=== PATIENT | male | born 1945 ===

== ENCOUNTER 2016-09-21 10:22 | Emergency (ER) | payer MEDICARE ==
--- NOTE | 2016-09-21 11:39 | C.PDOC ---
History Of Present Illness 71 y/o male presents to the ED with complains of lower extremity pain and swelling x1 month. Pt is homeless, admits to being on feet a lot. Pt denies SOB , cough, fever, chest pain or any other complaints. Time Seen by Provider: 09/21/16 10:58 Chief Complaint (Nursing): Lower Extremity Problem/Injury History Per: Patient History/Exam Limitations: no limitations Onset/Duration Of Symptoms: Days Current Symptoms Are (Timing): Still Present Severity: Moderate Recent travel outside of the [place]: No Past Medical History Reviewed: Historical Data, Nursing Documentation, Vital Signs Vital Signs: Last Vital Signs Temp 98.4 F 09/21/16 10:25 Pulse 81 09/21/16 10:25 Resp 16 09/21/16 10:25 BP 135/72 09/21/16 10:25 Pulse Ox 96 09/21/16 12:15 - Medical History PMH: Depression, Gastrointestinal Ulcer, HTN (denies) - [facility] Procedures VACCINATION NEC (02/27/15) Family History: States: Unknown Family Hx - Social History Hx Tobacco Use: No Hx Alcohol Use: Yes Hx Substance Use: No - Immunization History Hx Tetanus Toxoid Vaccination: No Hx Influenza Vaccination: No Hx Pneumococcal Vaccination: No Review Of Systems Except As Marked, All Systems Reviewed And Found Negative. Constitutional: Negative for: Fever Cardiovascular: Negative for: Chest Pain Respiratory: Negative for: Cough, Shortness of Breath Musculoskeletal: Positive for: Other (bilateral lower leg swelling and pain) Physical Exam - Physical Exam Appears: Non-toxic, No Acute Distress Skin: Warm, Dry, No Rash Head: Atraumatic, Normacephalic Neck: Normal ROM, Supple Chest: Symmetrical Cardiovascular: Rhythm Regular, No Murmur Respiratory: Normal Breath Sounds, No Rales, No Rhonchi, No Wheezing Gastrointestinal/Abdominal: Soft, No Tenderness Extremity: Normal ROM, No Calf Tenderness, Capillary Refill (<2 seconds), No Deformity, Other (+1 pitting edema lower legs and feet; no erythema) Pulses: Left Dorsalis Pedis: Normal, Right Dorsalis Pedis: Normal Neurological/Psych: Oriented x3, Normal Motor, Normal Sensation ED Course And Treatment - Laboratory Results Result Diagrams: 09/21/16 11:40 09/21/16 11:40 O2 Sat by Pulse Oximetry: 96 (on room air) Pulse Ox Interpretation: Normal - Other Rad Chest X-Ray X-Ray: Viewed By Me, Read By Radiologist Interpretation: Accession No. : [id number]. Patient Name / ID : DIDI LIANG / [id number]. Exam Date : 09/21/2016 11:15:17 ( Approved ). Study Comment : Sex / Age : M / [id number]. Creator : LIYAH KURTZ MD. Dictator : LIYAH KURTZ MD. Research Development Manager : University Dean : LIYAH KURTZ MD. Approver2 : Report Date : 09/21/2016 11:36:41. My Comment : . PROCEDURE: CHEST RADIOGRAPH, 1 VIEW. HISTORY: R/O CHF. COMPARISON: 02/27/2015. FINDINGS: LUNGS: There is airspace disease in the left lower lobe. There are fibrotic changes in the left upper lobe. There is a stable calcified nodule in the right upper lobe, otherwise the right lung is clear. PLEURA: No pneumothorax or pleural fluid seen. CARDIOVASCULAR: The cardiomediastinal silhouette is stable. OSSEOUS STRUCTURES: Status post ORIF right humerus. There are old fracture deformities in the left mid posterior ribs. VISUALIZED UPPER ABDOMEN: Normal. OTHER FINDINGS: None. IMPRESSION: Suspect left lower lobe atelectasis/pneumonia. Follow-up to resolution is recommended. No radiographic evidence for congestive heart failure. Progress Note: Plan: IV fluids, labs, CXR, lasix, toradol; rule out CHF. Disposition Counseled Patient/Family Regarding: Diagnosis, Need For Followup - Disposition Referrals: [facility] [Outside] Disposition Time: 13:00 Condition: STABLE Additional Instructions: SEGUIMIENTO CON CRUZ DOCTOR / CLNICA EN 1-2 STODDARD USE MEDICAMENTOS PARA EL DOLOR CHARLES SEA NECESARIO DEVUELVA A LA KENDRA DE EMERGENCIA SI LOS SNTOMAS EMPEORARAN Prescriptions: Naproxen [Naprosyn Tab] 375 mg PO BID PRN #20 tab PRN Reason: pain Instructions: Leg Edema (ED) Print Language: PALAUAN - POA Present On Arrival: None - Clinical Impression Clinical Impression: Leg edema - Scribe Statement The provider has reviewed the documentation as recorded by the Arielibzully Cedeno Provider Attestation: All medical record entries made by the Arielibe were at my direction and personally dictated by me. I have reviewed the chart and agree that the record accurately reflects my personal performance of the history, physical exam, medical decision making, and the department course for this patient. I have also personally directed, reviewed, and agree with the discharge instructions and disposition.
[2016-09-21 11:45] LABS: BASO % 1.2 % (0.0-2.0); EOS # 0.1 K/uL (0.0-0.7); EOS % 2.9 % (0.0-4.0); HEMATOCRIT 33.3 % (35.0-51.0); LYMPH # 1.1 K/uL (1.0-4.3); LYMPH % 27.3 % (20.0-40.0); MEAN CORPUSCULAR HEMOGLOBIN 32.4 pg (27.0-31.0); MEAN CORPUSCULAR HGB CONC 32.3 g/dL (33.0-37.0); MEAN PLATELET VOLUME 6.9 fL (7.2-11.7); MONO # 0.4 K/uL (0.0-0.8); MONO % 11.2 % (0.0-10.0); NRBC % 0.1 % (0.0-2.0); WHITE BLOOD COUNT 3.9 K/uL (4.8-10.8)
[2016-09-21 11:49] LABS: MEAN CELL VOLUME 100.2 fL (80.0-94.0)
[2016-09-21 11:54] LABS: CHLORIDE 101 mmol/L (98-107)
[2016-09-21 11:55] LABS: POTASSIUM 3.6 mmol/L (3.6-5.2); SODIUM 141 mmol/L (132-148)
[2016-09-21 11:57] LABS: ALKALINE PHOSPHATASE 55 U/L (38-126); AST/SGOT 29 U/L (17-59); BILIRUBIN,TOTAL 0.6 mg/dL (0.2-1.3); CARBON DIOXIDE 28 mmol/L (22-30); GFR AFRICAN-AMERICAN > 60
[2016-09-21 11:58] LABS: ALT/SGPT 13 U/L (21-72); BLOOD UREA NITROGEN 11 mg/dL (9-20); CALCIUM 8.5 mg/dl (8.6-10.4); GLUCOSE,RANDOM 102 mg/dL (75-110)
[2016-09-21 15:03] VITALS: BP 143/80; PULSE 100; RESP 18; TEMP 97.9; O2SAT 99
== END 2016-09-21 15:03 | disposition home or self-care (01) ==
LOC: C.ER 10:22
DX: R60.0 Localized edema (principal); Z59.0 Homelessness
CPT/HCPCS: 71010; 80053; 83880; 85025; 96374; 96375; 99285; J1885; J1940

== ENCOUNTER 2016-09-27 20:06 | Observation (INO) | payer MEDICARE ==
[2016-09-27 22:09] LABS: BASO # 0.1 K/uL (0.0-0.2); EOS # 0.2 K/uL (0.0-0.7); EOS % 3.8 % (0.0-4.0); HEMATOCRIT 32.2 % (35.0-51.0); LYMPH # 1.5 K/uL (1.0-4.3); LYMPH % 27.5 % (20.0-40.0); MEAN CELL VOLUME 99.8 fL (80.0-94.0); MEAN CORPUSCULAR HEMOGLOBIN 32.4 pg (27.0-31.0); MEAN CORPUSCULAR HGB CONC 32.4 g/dL (33.0-37.0); MEAN PLATELET VOLUME 7.6 fL (7.2-11.7); MONO # 0.7 K/uL (0.0-0.8); MONO % 12.6 % (0.0-10.0); NRBC % 0.1 % (0.0-2.0); RED CELL DISTRIBUTION WIDTH 17.1 % (11.5-14.5); WHITE BLOOD COUNT 5.6 K/uL (4.8-10.8)
[2016-09-27 22:16] LABS: CHLORIDE 99 mmol/L (98-107); POTASSIUM 3.8 mmol/L (3.6-5.2); SODIUM 137 mmol/L (132-148)
[2016-09-27 22:18] LABS: ALB/GLOB RATIO 1.1 (1.0-2.1); ALKALINE PHOSPHATASE 62 U/L (38-126); ALT/SGPT 12 U/L (21-72); AST/SGOT 35 U/L (17-59); BILIRUBIN,TOTAL 0.8 mg/dL (0.2-1.3); BLOOD UREA NITROGEN 11 mg/dL (9-20); CARBON DIOXIDE 25 mmol/L (22-30); GFR AFRICAN-AMERICAN > 60; TOTAL PROTEIN 7.2 g/dL (6.3-8.3)
[2016-09-27 22:19] LABS: CALCIUM 8.7 mg/dl (8.6-10.4); GLUCOSE,RANDOM 91 mg/dL (75-110)
[2016-09-27 22:57] VITALS: TEMP 98.3
--- NOTE | 2016-09-28 00:06 | C.PDOC ---
History Of Present Illness 71 year old patient, with a past medical history of gastrointestinal ulcer and depression, presents to the ED complaining of edema to bilateral lower extremities. Patient is homeless and [facility] the intermediate. Patient denies fever , vomiting, chest pain, shortness of breath, numbness or weakness at this time. Time Seen by Provider: 09/27/16 21:23 Chief Complaint (Nursing): Lower Extremity Problem/Injury History Per: Patient History/Exam Limitations: no limitations Onset/Duration Of Symptoms: Other Current Symptoms Are (Timing): Still Present Severity: Moderate Pain Scale Rating Of: 5 Recent travel outside of the [place]: No Past Medical History Reviewed: Historical Data, Nursing Documentation, Vital Signs Vital Signs: Last Vital Signs Temp 98.3 F 09/27/16 22:55 Pulse 62 09/28/16 06:20 Resp 16 09/28/16 06:20 BP 135/72 09/28/16 06:20 Pulse Ox 97 09/28/16 06:20 - Medical History PMH: Depression, Gastrointestinal Ulcer - [facility] Procedures VACCINATION NEC (02/27/15) Family History: States: Unknown Family Hx - Social History Hx Tobacco Use: No Hx Alcohol Use: Yes Hx Substance Use: No - Immunization History Hx Tetanus Toxoid Vaccination: No Hx Influenza Vaccination: No Hx Pneumococcal Vaccination: No Review Of Systems Except As Marked, All Systems Reviewed And Found Negative. Constitutional: Negative for: Fever Cardiovascular: Positive for: Edema (bilateral to lower extremities). Negative for: Chest Pain Respiratory: Negative for: Shortness of Breath Gastrointestinal: Negative for: Vomiting Neurological: Negative for: Weakness, Numbness Physical Exam - Physical Exam Appears: Non-toxic, No Acute Distress Skin: Warm, Dry Head: Atraumatic, Normacephalic Neck: Normal ROM, Supple Chest: Symmetrical Cardiovascular: Rhythm Regular, No JVD Respiratory: Normal Breath Sounds, No Rales, No Rhonchi, No Wheezing Gastrointestinal/Abdominal: Soft, No Tenderness Back: Normal Inspection, No CVA Tenderness Extremity: Normal ROM, Pedal Edema (bilateral; mild; erythema), Capillary Refill (within normal limits), No Deformity Neurological/Psych: Oriented x3, Normal Speech, Normal Cognition ED Course And Treatment - Laboratory Results Result Diagrams: 09/27/16 21:56 09/27/16 21:56 Lab Interpretation: Normal (trop/bnp neg.) ECG: Interpreted By Me ECG Rhythm: Sinus Rhythm ECG Interpretation: Normal Rate From EC (bpm) O2 Sat by Pulse Oximetry: 98 (RA) Pulse Ox Interpretation: Normal - Radiology CXR: Interpreted by Me CXR Interpretation: Yes: Other (? mild CHF) - CT Scan/US CTA Other Rad Studies (CT/US): Read By Radiologist (Harsha Sanches MD), Radiology Report Reviewed CT/US Interpretation: IMPRESSION: 1. Paraseptal emphysema bilaterally. 2. Edema type pattern in the mid and lower lungs with groundglass density most notably in the left. lower lobe. 3. Mild motion artifact with no pulmonary embolism seen. Progress Note: Plan: Chest XR, Labs, EKG, Aspirin, Lasix. CTA Reevaluation Time: 06:10 Reassessment Condition: Improved Medical Decision Making Medical Decision Making: no CHF, chronic leg edema with normal labs/bnp/trop/CT chest. Disposition Doctor Will See Patient In The: Office Counseled Patient/Family Regarding: Studies Performed, Diagnosis - Disposition Disposition: HOME/ ROUTINE Disposition Time: 06:11 Condition: GOOD - Clinical Impression Clinical Impression: Leg swelling - Scribe Statement The provider has reviewed the documentation as recorded by the Scribe Caty Patino Provider Attestation: All medical record entries made by the Scribe were at my direction and personally dictated by me. I have reviewed the chart and agree that the record accurately reflects my personal performance of the history, physical exam, medical decision making, and the department course for this patient. I have also personally directed, reviewed, and agree with the discharge instructions and disposition.
[2016-09-28 03:27] VITALS: PULSE 62
[2016-09-28 06:25] VITALS: BP 135/72; RESP 16
[2016-09-28 06:35] VITALS: O2SAT 98
--- NOTE | 2016-09-28 08:23 | RAD ---
PROCEDURE: CHEST RADIOGRAPH, 1 VIEW HISTORY: Shortness of breath COMPARISON: None available. FINDINGS: LUNGS: Patchy airspace opacities in the mid to lower lung zones bilaterally; left greater than right. Prominent rounded nodular density projecting over the lateral aspect of the left upper to mid lung zone with smaller rounded nodular density at the lateral aspect of the right midlung zone. Biapical pleural thickening. PLEURA: As above. CARDIOVASCULAR: Normal. OSSEOUS STRUCTURES: Several left lateral rib deformities. Postsurgical changes in the right proximal humerus. VISUALIZED UPPER ABDOMEN: Normal. OTHER FINDINGS: None. IMPRESSION: Patchy airspace opacities in the mid to lower lung zones bilaterally; left greater than right. Prominent rounded nodular density projecting over the lateral aspect of the left upper to mid lung zone with smaller rounded nodular density at the lateral aspect of the right midlung zone. Biapical pleural thickening.
--- NOTE | 2016-09-28 09:53 | CT ---
PROCEDURE: CT Chest with contrast (Pulmonary Angiogram) HISTORY: Shortness of breath. Elevated D-dimer. COMPARISON: None available. TECHNIQUE: Axial computed tomography images were obtained of the chest in the pulmonary arterial phase of enhancement. Coronal and sagittal reformatted images were created and reviewed. Intravenous contrast dose: 100 cc of Omnipaque 350 intravenous contrast. Radiation dose: Total exam DLP = 391 mGy-cm. FINDINGS: PULMONARY ARTERIES: No evidence for acute central pulmonary embolism. More limited evaluation of the subsegmental vessels particularly within the lower lobes secondary to motion artifact. AORTA: Calcification at the aortic arch. LUNGS: Emphysematous changes bilaterally in a paraseptal configuration. Venous congestion with edema type pattern in the mid and lower lung zones. More confluent ground-glass consolidative changes in the left lower lobe of the lung. 5 millimeter calcified granuloma in the right upper lobe. Scattered atelectatic changes. PLEURAL SPACES: Unremarkable. No effusion or pneuomothorax. HEART: Unremarkable. No cardiomegaly. No significant pericardial effusion. LYMPH NODES: No lymphadenopathy. BONES, CHEST WALL: Prominent degenerative changes in the spine with paravertebral osteophytosis. Loss of height of a lower thoracic vertebral body. Multiple left-sided rib fracture deformities. OTHER FINDINGS: Small hiatal hernia. Heterogeneous appearance of the thyroid gland. IMPRESSION: No evidence for acute central pulmonary embolism. More limited evaluation of the subsegmental vessels particularly within the lower lobes secondary to motion artifact. Emphysematous changes bilaterally in a paraseptal configuration. Venous congestion with edema type pattern in the mid and lower lung zones. More confluent ground-glass consolidative changes in the left lower lobe of the lung. 5 millimeter calcified granuloma in the right upper lobe. Scattered atelectatic changes. These findings were preliminarily reported at 12:45 a.m. on 09/28/[address] Harsha Sanches from [employer].
--- NOTE | 2016-09-29 08:16 | CARD ---
APPROVED REPORT EKG Measurement Heart [id number] 140P70 [id number] <Conclusion> Normal sinus rhythm Voltage criteria for left ventricular hypertrophy Abnormal ECG
== END 2016-09-28 06:13 | disposition home or self-care (01) ==
LOC: C.ER 20:06 → C.9OBSV 09-28 01:42
PROVIDERS: ADMIT Internal Medicine; ATTEND Internal Medicine
DX: M79.89 Other specified soft tissue disorders (principal); K25.9 Gastric ulcer, unspecified as acute or chronic, without hemorrhage or perforation; F32.9 Major depressive disorder, single episode, unspecified; Z59.0 Homelessness
CPT/HCPCS: 71010; 71275; 80053; 83880; 84484; 85025; 85378; 85610; 85730; 93005; 96374; 99285; G0378; G0480; J1940

== ENCOUNTER 2016-09-29 13:56 | Emergency (ER) | payer MEDICARE ==
[2016-09-29 14:18] VITALS: O2SAT 96
[2016-09-29] MEDS ORDERED: Sodium Chloride 0.9% 1,000 ML IV ONE (14:22)
--- NOTE | 2016-09-29 14:41 | C.PDOC ---
History Of Present Illness 71 year old homeless male presents to the ED with complaints of swelling to his bilateral legs for the past few weeks and lightheadedness starting today after breakfast. REview of records show the patient was evaluated in the ED 5 times in the past 3-4 weeks (most recently yesterday) and has had multiple workups, which were negative, and an elevated d-dimer yesterday and a CTA chest to rule out PE which was also negative. He notes he has an appointment with the clinic on 10/14/16 however his legs are more swollen and achy. Denies chest pain, SOB, fever, or any other complaints at this time. He states he has not been drinking although he does seem to be intoxicated. Time Seen by Provider: 09/29/16 14:02 Chief Complaint (Nursing): Dizziness/Lightheaded History Per: Patient History/Exam Limitations: no limitations Onset/Duration Of Symptoms: Days Current Symptoms Are (Timing): Still Present Seizure Or Post-ictal Symptoms: None Past Medical History Reviewed: Historical Data, Nursing Documentation, Vital Signs Vital Signs: Last Vital Signs Temp 97.6 F 09/29/16 14:14 Pulse 90 09/29/16 14:14 Resp 18 09/29/16 14:14 BP 100/78 09/29/16 14:14 Pulse Ox 96 09/29/16 14:46 - Medical History PMH: Depression, Gastrointestinal Ulcer, HTN (denies) - [facility] Procedures VACCINATION NEC (02/27/15) Family History: States: Unknown Family Hx - Social History Hx Tobacco Use: No Hx Alcohol Use: Yes Hx Substance Use: No - Immunization History Hx Tetanus Toxoid Vaccination: No Hx Influenza Vaccination: No Hx Pneumococcal Vaccination: No Review Of Systems Except As Marked, All Systems Reviewed And Found Negative. Constitutional: Negative for: Fever, Chills Cardiovascular: Positive for: Light Headedness. Negative for: Chest Pain, Palpitations Respiratory: Negative for: Shortness of Breath Musculoskeletal: Positive for: Leg Pain (+Leg painand swelling) Neurological: Negative for: Weakness, Numbness Physical Exam - Physical Exam Appears: Non-toxic, No Acute Distress Skin: Normal Color, Warm, Dry Head: Atraumatic, Normacephalic Eye(s): bilateral: Normal Inspection Oral Mucosa: Moist Chest: Symmetrical, No Deformity Cardiovascular: Rhythm Regular Respiratory: Normal Breath Sounds, No Accessory Muscle Use Extremity: Normal ROM, Pedal Edema (1-2+ pitting edema to the bilateral lower extremities), No Calf Tenderness, Capillary Refill (< 2 seconds), No Deformity Pulses: Left Dorsalis Pedis: Normal, Right Dorsalis Pedis: Normal Neurological/Psych: Oriented x3, Normal Speech, Normal Cognition, Normal Motor, Normal Sensation, Other (+No neuro deficits) ED Course And Treatment - Laboratory Results Result Diagrams: 09/29/16 14:37 09/29/16 14:37 Lab Interpretation: No Changes Compared To Prior Results (except for blood sugar 56. ETOH 150.) ECG: Interpreted By Me ECG Rhythm: Sinus Rhythm ECG Interpretation: No Acute Changes O2 Sat by Pulse Oximetry: 96 (Room air) Pulse Ox Interpretation: Normal Progress Note: EKG and Blood work ordered and reviewed. Patient treated with IV fluids. Patient advised to keep his clinic appointment Reevaluation Time: 16:16 Reassessment Condition: Improved (BS 131 after patient given a meal. Orthostatic vitals normal.) Disposition Counseled Patient/Family Regarding: Studies Performed, Diagnosis, Need For Followup - Disposition Referrals: [facility] [Outside] Disposition: HOME/ ROUTINE Disposition Time: 16:17 Condition: IMPROVED Instructions: Alcohol Intoxication (ED), Non-diabetic Hypoglycemia (ED) Print Language: UKRAINIAN - Clinical Impression Clinical Impression: Alcohol intoxication, Hypoglycemia - Scribe Statement The provider has reviewed the documentation as recorded by the Scribe Shraif Cox. Provider Attestation: All medical record entries made by the Scribe were at my direction and personally dictated by me. I have reviewed the chart and agree that the record accurately reflects my personal performance of the history, physical exam, medical decision making, and the department course for this patient. I have also personally directed, reviewed, and agree with the discharge instructions and disposition.
[2016-09-29 14:45] LABS: BASO # 0.1 K/uL (0.0-0.2); BASO % 1.1 % (0.0-2.0); EOS # 0.2 K/uL (0.0-0.7); EOS % 3.5 % (0.0-4.0); HEMATOCRIT 32.4 % (35.0-51.0); LYMPH # 1.4 K/uL (1.0-4.3); LYMPH % 27.6 % (20.0-40.0); MEAN CELL VOLUME 99.3 fL (80.0-94.0); MEAN CORPUSCULAR HEMOGLOBIN 33.3 pg (27.0-31.0); MEAN CORPUSCULAR HGB CONC 33.6 g/dL (33.0-37.0); MEAN PLATELET VOLUME 7.1 fL (7.2-11.7); MONO # 0.6 K/uL (0.0-0.8); MONO % 11.9 % (0.0-10.0); NRBC % 0.1 % (0.0-2.0); RED CELL DISTRIBUTION WIDTH 17.2 % (11.5-14.5); WHITE BLOOD COUNT 5.1 K/uL (4.8-10.8)
[2016-09-29 14:58] LABS: CHLORIDE 106 mmol/L (98-107); POTASSIUM 3.5 mmol/L (3.6-5.2); SODIUM 142 mmol/L (132-148)
[2016-09-29 15:00] LABS: GFR AFRICAN-AMERICAN > 60
[2016-09-29 15:01] LABS: ALB/GLOB RATIO 0.9 (1.0-2.1); ALKALINE PHOSPHATASE 50 U/L (38-126); ALT/SGPT 20 U/L (21-72); AST/SGOT 39 U/L (17-59); BILIRUBIN,TOTAL 0.7 mg/dL (0.2-1.3); BLOOD UREA NITROGEN 11 mg/dL (9-20); CALCIUM 8.4 mg/dl (8.6-10.4); CARBON DIOXIDE 20 mmol/L (22-30); GLUCOSE,RANDOM 56 mg/dL (75-110); MAGNESIUM 1.8 mg/dL (1.6-2.3); TOTAL PROTEIN 7.5 g/dL (6.3-8.3)
[2016-09-29 15:02] LABS: ALCOHOL SERUM 150 mg/dl (0-10)
[2016-09-29 16:48] VITALS: BP 132/79; PULSE 85; RESP 20; TEMP 97.5
--- NOTE | 2016-09-30 21:29 | CARD ---
APPROVED REPORT EKG Measurement Heart [id number] <Conclusion> Normal sinus rhythm Moderate voltage criteria for LVH, may be normal variant Borderline ECG
== END 2016-09-29 16:51 | disposition home or self-care (01) ==
LOC: C.ER 13:56
DX: F10.120 Alcohol abuse with intoxication, uncomplicated (principal); Y90.6 Blood alcohol level of 120-199 mg/100 ml; E16.2 Hypoglycemia, unspecified
CPT/HCPCS: 80053; 82948; 83735; 85025; 93005; 99285; G0480

== ENCOUNTER 2016-11-12 18:51 | Emergency (ER) | payer MEDICARE ==
[2016-11-12 19:53] VITALS: BP 175/92; PULSE 73; RESP 18; TEMP 98.3; O2SAT 98
--- NOTE | 2016-11-12 20:12 | C.PDOC ---
History Of Present Illness The patient reports that he tripped and fell forward injurying the bilateral knees 2 hours [employer]. The patient reports that he was ambulatory afterwards but wants to be checked. Denies numbness, weakness, or other injuries. Time Seen by Provider: 11/12/16 19:39 Chief Complaint (Nursing): Lower Extremity Problem/Injury History Per: Patient History/Exam Limitations: no limitations Onset/Duration Of Symptoms: Hrs Current Symptoms Are (Timing): Still Present Severity: Mild Pain Scale Rating Of: 4 Recent travel outside of the [place]: No - Knee Description Of Injury: Fell Alleviating Factor(s): Elevation Past Medical History Reviewed: Historical Data, Nursing Documentation, Vital Signs Vital Signs: Last Vital Signs Temp 98.3 F 11/12/16 19:47 Pulse 73 11/12/16 19:47 Resp 18 11/12/16 19:47 BP 175/92 H 11/12/16 19:47 Pulse Ox 98 11/12/16 19:47 - Medical History PMH: Depression, Gastrointestinal Ulcer, HTN (denies) Denies: Chronic Kidney Disease - [facility] Procedures VACCINATION NEC (02/27/15) Family History: States: No Known Family Hx - Social History Hx Tobacco Use: No Hx Alcohol Use: Yes Hx Substance Use: No - Immunization History Hx Tetanus Toxoid Vaccination: No Hx Influenza Vaccination: No Hx Pneumococcal Vaccination: No Review Of Systems Except As Marked, All Systems Reviewed And Found Negative. Physical Exam - Physical Exam Appears: Well, No Acute Distress Skin: Normal Color, Warm, Dry, Other ((+) superficial abrasion to the right knee ) Head: Atraumatic, Normacephalic Eye(s): bilateral: Normal Inspection, PERRL, EOMI Nose: Normal Oral Mucosa: Moist Throat: Normal Neck: Normal ROM, No Midline Cervical Tenderness, No Paracervical Tenderness, Supple Chest: Symmetrical, No Tenderness Cardiovascular: Rhythm Regular, No Friction Rub, No Murmur Respiratory: Normal Breath Sounds Back: Normal Inspection, No Vertebral Tenderness, No Paraspinal Tenderness Extremity: Normal ROM (of the bilateral knees and hips), Capillary Refill (< 2 sec), Other (minimal swelling to the anterior bilateral knees. No tenderness) Extremity: Bilateral: Normal Color And Temperature Pulses: Left Dorsalis Pedis: Normal, Right Dorsalis Pedis: Normal Neurological/Psych: Oriented x3, Normal Motor, Normal Sensation Gait: Steady ED Course And Treatment O2 Sat by Pulse Oximetry: 98 (on RA) Pulse Ox Interpretation: Normal Progress Note: There is no need for diagnostic imaging at this time as the patient has normal ROM, ambulatory without difficulty and steady gait. Abrasion was cleansed with sterile saline and betadine and dressing applied. Disposition - Disposition Referrals: [facility] [Outside] Disposition: HOME/ ROUTINE Disposition Time: 20:15 Condition: GOOD Additional Instructions: Follow up with the medical doctor/clinic within 1-2 days. Return if worsened. Prescriptions: Acetaminophen [Tylenol] 325 mg PO Q6 PRN #30 tab PRN Reason: Pain, Mild (1-3) Instructions: Knee Sprain (ED) - Clinical Impression Clinical Impression: Knee contusion, Knee abrasion
== END 2016-11-12 21:48 | disposition home or self-care (01) ==
LOC: C.ER 18:51
DX: S80.211A Abrasion, right knee, initial encounter (principal); S80.02XA Contusion of left knee, initial encounter; W01.0XXA Fall on same level from slipping, tripping and stumbling without subsequent striking against object, initial encounter; Y93.9 Activity, unspecified; Y92.9 Unspecified place or not applicable

== ENCOUNTER 2017-01-12 13:29 | Emergency (ER) | payer MEDICARE ==
[2017-01-12] MEDS ORDERED: Sodium Chloride 0.9% 1,000 ML IV ONE (13:53)
--- NOTE | 2017-01-12 13:58 | C.PDOC ---
History Of Present Illness 71 y/o male presents to the ED with complaints of dizziness. Pt is drunk, drinks daily. Today, he had a couple of beers, ate lunch and afterward felt dizzy. Denies chest pain, palpitations, headache, vomiting or any other complaints. Time Seen by Provider: 01/12/17 13:48 Chief Complaint (Nursing): Dizziness/Lightheaded History Per: Patient History/Exam Limitations: no limitations Onset/Duration Of Symptoms: Hrs Current Symptoms Are (Timing): Still Present Possible Causative Factor(s): Recent Alcohol Fall Associated With With Symptoms: No Severity: Mild Recent travel outside of the [place]: No - Symptoms Of CVA Recent Head Trauma: No Past Medical History Reviewed: Historical Data, Nursing Documentation, Vital Signs Vital Signs: Last Vital Signs Temp 98.1 F 01/12/17 17:23 Pulse 67 01/12/17 17:23 Resp 16 01/12/17 17:23 BP 120/74 01/12/17 17:23 Pulse Ox 94 L 01/12/17 18:22 - Medical History PMH: Depression, Gastrointestinal Ulcer, HTN (denies) - [facility] [facility] Procedures VACCINATION NEC (02/27/15) Family History: States: Unknown Family Hx - Social History Hx Tobacco Use: No Hx Alcohol Use: Yes Hx Substance Use: No - Immunization History Hx Tetanus Toxoid Vaccination: No Hx Influenza Vaccination: No Hx Pneumococcal Vaccination: No Review Of Systems Except As Marked, All Systems Reviewed And Found Negative. Cardiovascular: Negative for: Chest Pain, Palpitations Respiratory: Negative for: Shortness of Breath Gastrointestinal: Negative for: Vomiting Neurological: Positive for: Dizziness. Negative for: Headache Physical Exam - Physical Exam Appears: Non-toxic, No Acute Distress, Other (intoxicated) Skin: Warm, Dry, No Rash Head: Atraumatic, Normacephalic Oral Mucosa: Dry Chest: Symmetrical Cardiovascular: Rhythm Regular (tachycardic), No Murmur Respiratory: Normal Breath Sounds, No Rales, No Rhonchi, No Wheezing Extremity: Bilateral: Atraumatic Neurological/Psych: Oriented x3, No Normal Speech (speech slurred), Normal Cognition, Normal Cranial Nerves, Normal Motor, Normal Sensation ED Course And Treatment - Laboratory Results Result Diagrams: 01/12/17 14:07 01/12/17 14:07 Lab Interpretation: Abnormal Interpretation Of Abnormal: ETOH 235 ECG: Interpreted By Me ECG Rhythm: Sinus Rhythm ECG Interpretation: Normal O2 Sat by Pulse Oximetry: 94 (room air) Reevaluation Time: 19:29 Reassessment Condition: Improved (Patient awake and alert.) Disposition - Disposition Disposition: HOME/ ROUTINE Disposition Time: 19:29 Condition: IMPROVED Instructions: Alcohol Intoxication (ED) Print Language: PRYDEINIG - Clinical Impression Clinical Impression: Alcohol intoxication - Scribe Statement The provider has reviewed the documentation as recorded by the Reid Cedeno Provider Attestation: All medical record entries made by the Reid were at my direction and personally dictated by me. I have reviewed the chart and agree that the record accurately reflects my personal performance of the history, physical exam, medical decision making, and the department course for this patient. I have also personally directed, reviewed, and agree with the discharge instructions and disposition.
[2017-01-12 14:12] LABS: BASO % 0.8 % (0.0-2.0); EOS # 0.5 K/uL (0.0-0.7); EOS % 8.8 % (0.0-4.0); HEMOGLOBIN 10.2 g/dL (12.0-18.0); LYMPH # 2.1 K/uL (1.0-4.3); LYMPH % 39.2 % (20.0-40.0); MEAN CELL VOLUME 98.8 fL (80.0-94.0); MEAN CORPUSCULAR HEMOGLOBIN 31.6 pg (27.0-31.0); MEAN PLATELET VOLUME 7.4 fL (7.2-11.7); MONO # 0.3 K/uL (0.0-0.8); MONO % 6.5 % (0.0-10.0); NEUT # 2.4 K/uL (1.8-7.0); NEUT % 44.7 % (50.0-75.0); NRBC % 0.1 % (0.0-2.0); RBC 3.23 Mil/uL (4.40-5.90); RED CELL DISTRIBUTION WIDTH 17.8 % (11.5-14.5); WHITE BLOOD COUNT 5.4 K/uL (4.8-10.8)
[2017-01-12 14:19] LABS: ALBUMIN 3.6 g/dL (3.5-5.0)
[2017-01-12 14:22] LABS: ALB/GLOB RATIO 0.9 (1.0-2.1); ALT/SGPT 16 U/L (21-72); AST/SGOT 28 U/L (17-59); BLOOD UREA NITROGEN 15 mg/dL (9-20); CALCIUM 8.1 mg/dl (8.6-10.4); GFR AFRICAN-AMERICAN > 60; GFR NON-AFRICAN AMERICAN > 60
[2017-01-12 17:23] VITALS: TEMP 98.1
[2017-01-12 18:23] VITALS: O2SAT 94
[2017-01-12 18:59] LABS: SQUAMOUS EPITHIAL 1 /hpf (0-5); URINE BILIRUBIN NEGATIVE (NEGATIVE); URINE BLOOD NEGATIVE (NEGATIVE); URINE CLARITY Clear (Clear); URINE COLOR Yellow (YELLOW); URINE GLUCOSE (UA) NORMAL (Normal); URINE HYALINE CAST 0-2 /lpf (0-2); URINE LEUKOCYTE ESTERASE TRACE Leu/uL (Negative); URINE NITRATE NEGATIVE (NEGATIVE); URINE PROTEIN NEGATIVE (NEGATIVE); URINE UROBILINOGEN NORMAL mg/dL (0.2-1.0)
[2017-01-12 20:32] VITALS: BP 132/78; PULSE 88; RESP 20
--- NOTE | 2017-01-14 00:27 | CARD ---
APPROVED REPORT EKG Measurement Heart [id number] <Conclusion> Normal sinus rhythm with sinus arrhythmia Normal ECG
== END 2017-01-12 19:15 | disposition home or self-care (01) ==
LOC: C.ER 13:29
DX: F10.129 Alcohol abuse with intoxication, unspecified (principal); Y90.7 Blood alcohol level of 200-239 mg/100 ml
CPT/HCPCS: 80053; 81001; 82948; 85025; 93005; 96360; 99285; G0480; J7040

== ENCOUNTER 2017-02-22 13:50 | Emergency (ER) | payer MEDICARE, MEDICAID ==
[2017-02-22 13:58] VITALS: TEMP 98.6; O2SAT 98
--- NOTE | 2017-02-22 14:19 | C.PDOC ---
History Of Present Illness 71 y/o male, with history of alcohol abuse, and homelessness, presents to ED requesting detox from alcohol. Patient has been seen here several times for alcohol intoxication in the past. Otherwise, denies any chest pain, shortness of breath, headache, fever, chills, cough, nausea, vomiting, diarrhea, abdominal pain, dizziness or any other physical complaints at this time. Time Seen by Provider: 02/22/17 14:14 Chief Complaint (Nursing): Medical Clearance History Per: Patient History/Exam Limitations: no limitations Onset/Duration Of Symptoms: Gradual Current Symptoms Are (Timing): Still Present Suicide/Self Injury Attempted (Context): None Modifying Factor(s): Alcohol Severity: None Pain Scale Rating Of: 0 Associated Symptoms: denies: Suicidal Thoughts, Suicidal Plan Involuntary Hold By: None Recent travel outside of the [place]: No Additional History Per: Prior Records Past Medical History Reviewed: Historical Data, Nursing Documentation, Vital Signs Vital Signs: Last Vital Signs Temp 98.6 F 02/22/17 13:57 Pulse 91 H 02/22/17 14:41 Resp 16 02/22/17 14:41 BP 135/85 02/22/17 14:41 Pulse Ox 98 02/22/17 15:49 - Medical History PMH: Depression, Gastrointestinal Ulcer, HTN (denies) Denies: Chronic Kidney Disease - [facility] Procedures VACCINATION NEC (02/27/15) Family History: States: Unknown Family Hx - Social History Hx Tobacco Use: No Hx Alcohol Use: Yes Hx Substance Use: No - Immunization History Hx Tetanus Toxoid Vaccination: No Hx Influenza Vaccination: No Hx Pneumococcal Vaccination: No Review Of Systems Except As Marked, All Systems Reviewed And Found Negative. Constitutional: Negative for: Fever, Chills Cardiovascular: Negative for: Chest Pain, Palpitations Respiratory: Negative for: Cough, Shortness of Breath Gastrointestinal: Negative for: Nausea, Vomiting, Abdominal Pain Skin: Negative for: Rash, Bruising Neurological: Negative for: Headache, Dizziness Psych: Negative for: Suicidal ideation Physical Exam - Physical Exam Appears: Non-toxic, No Acute Distress, Other (EtOH on breath, elderly ) Skin: Normal Color, Warm, Dry Head: Atraumatic, Normacephalic Eye(s): bilateral: Normal Inspection, EOMI Oral Mucosa: Moist Neck: Normal ROM, Supple Chest: Symmetrical Cardiovascular: Rhythm Regular, No Murmur Respiratory: Normal Breath Sounds, No Rales, No Rhonchi, No Wheezing Gastrointestinal/Abdominal: Soft, No Tenderness Extremity: Bilateral: Atraumatic, Normal ROM Neurological/Psych: Oriented x3, Normal Speech, Normal Cognition Gait: Steady ED Course And Treatment O2 Sat by Pulse Oximetry: 98 (RA) Pulse Ox Interpretation: Normal Medical Decision Making Medical Decision Making: chronic homeless, alcoholic seeking inpt detox, ? secondary gains no detox avail today Refered to f/u as opt. Disposition Doctor Will See Patient In The: Office Counseled Patient/Family Regarding: Studies Performed, Diagnosis - Disposition Referrals: Alcoholics Anonymous [Outside] [facility] [Outside] [facility] [Outside] [facility] [Outside] Disposition: HOME/ ROUTINE Disposition Time: 14:19 Condition: GOOD Additional Instructions: [place] para connor si hay desponible Detox del Alcohol [facility]. Instructions: Abuse of Alcohol (ED) Forms: [facility] (Micronesian) Print Language: BELARUSIAN - Clinical Impression Clinical Impression: Alcoholism - Scribe Statement The provider has reviewed the documentation as recorded by the Scribe Hosea Patino All medical record entries made by the Scribe were at my direction and personally dictated by me. I have reviewed the chart and agree that the record accurately reflects my personal performance of the history, physical exam, medical decision making, and the department course for this patient. I have also personally directed, reviewed, and agree with the discharge instructions and disposition.
[2017-02-22 14:42] VITALS: BP 135/85; PULSE 91; RESP 16
== END 2017-02-22 14:41 | disposition home or self-care (01) ==
LOC: C.ER 13:50
DX: F10.20 Alcohol dependence, uncomplicated (principal); Y90.9 Presence of alcohol in blood, level not specified

== ENCOUNTER 2017-03-05 09:16 | Observation (INO) | payer MEDICARE, MEDICAID ==
[2017-03-05 09:27] VITALS: RESP 16
--- NOTE | 2017-03-05 09:54 | C.PDOC ---
History Of Present Illness Pt was BIBEMS due to public alcohol intoxication. Time Seen by Provider: 03/05/17 09:29 Chief Complaint (Nursing): Substance Abuse History Per: Patient, EMS History/Exam Limitations: intoxication Onset/Duration Of Symptoms: Unknown (today) Current Symptoms Are (Timing): Still Present Suicide/Self Injury Attempted (Context): None Modifying Factor(s): Alcohol Severity: Moderate Associated Symptoms: denies: Suicidal Thoughts, Suicidal Plan Additional History Per: Prior Records Past Medical History Reviewed: Historical Data, Nursing Documentation, Vital Signs Vital Signs: Last Vital Signs Temp 97.9 F 03/05/17 14:01 Pulse 75 03/05/17 14:01 Resp 16 03/05/17 14:01 BP 126/83 03/05/17 14:01 Pulse Ox 98 03/05/17 14:01 - Medical History PMH: Depression, Gastrointestinal Ulcer, HTN (denies) Other PMH: Alcohol abuse - [facility] Procedures VACCINATION NEC (02/27/15) Family History: States: Unknown Family Hx - Social History Hx Tobacco Use: No Hx Alcohol Use: Yes Hx Substance Use: No - Immunization History Hx Tetanus Toxoid Vaccination: No Hx Influenza Vaccination: No Hx Pneumococcal Vaccination: No Review Of Systems Review Of Systems: ROS cannot be obtained secondary to pt's inabilty to answer questions. Physical Exam - Physical Exam Appears: Non-toxic, No Acute Distress, Other (AOB) Skin: Normal Color, Warm, Dry Head: Atraumatic, Normacephalic Eye(s): bilateral: PERRL Neck: Normal ROM, No Midline Cervical Tenderness, No Step Off Deformity, Supple Chest: Symmetrical, No Deformity Cardiovascular: Rhythm Regular Respiratory: Normal Breath Sounds, No Accessory Muscle Use Gastrointestinal/Abdominal: Soft, No Tenderness Extremity: Normal ROM, No Deformity Neurological/Psych: Slow To Respond With Command Gait: Unable To Assess ED Course And Treatment O2 Sat by Pulse Oximetry: 96 Pulse Ox Interpretation: Normal Reassessment Condition: Improved ED OBSERVATION Discharge: Yes Date of observation admission: 03/05/17 Time of observation admission: 09:30 - Observation admission statement Patient is being placed in observation because:: Alcohol intoxication. - Goals of Observation Goals of observation are:: Sobriety. - Progress Note Progress Note: 03/05/17 14:43 Pt is now clinically sober. AAOx3. Steady gait. Disposition Counseled Patient/Family Regarding: Diagnosis, Need For Followup - Disposition Disposition: HOME/ ROUTINE Disposition Time: 14:44 Condition: IMPROVED - Clinical Impression Clinical Impression: Alcohol abuse
[2017-03-05 14:02] VITALS: BP 126/83; PULSE 75; TEMP 97.9
[2017-03-05 14:44] VITALS: O2SAT 96
== END 2017-03-05 14:44 | disposition home or self-care (01) ==
LOC: C.ER 09:16 → C.9OBSV 09:54
PROVIDERS: ADMIT Emergency Medicine; ATTEND Emergency Medicine
DX: F10.129 Alcohol abuse with intoxication, unspecified (principal); I10 Essential (primary) hypertension; F32.9 Major depressive disorder, single episode, unspecified; Z87.11 Personal history of peptic ulcer disease
CPT/HCPCS: 99284; G0378